=== PATIENT | female | born 1940 | race Caucasian/White ===

== ENCOUNTER 2017-02-06 12:54 | Emergency (ER) | payer OTHER ==
[~2017-02-06 12:54] MED LIST: AMBIEN10 MG PO; B-121000 MCG PO; BIOTIN1 TAB PO; GOOD SENSE ASPI81 M3 PO; MULTI VITAMINS1 TA1 PO; NATURAL IRON65 MG PO; OMEPRAZOLE40 M1 PO; PROVENTIL0.09 MG/A1; SYMBICORT1 AE2 INH; TUDORZA PR400 MCG/A1 IH; VITAMIN D1 TA1 PO
[2017-02-06 16:27] VITALS: BP 151/55
== END 2017-02-06 16:27 | disposition home or self-care (01) ==
LOC: ED 12:54
DX: S61.211A Laceration without foreign body of left index finger without damage to nail, initial encounter (principal); J44.9 Chronic obstructive pulmonary disease, unspecified; Z79.899 Other long term (current) drug therapy; W26.8XXA Contact with other sharp object(s), not elsewhere classified, initial encounter; Y93.89 Activity, other specified; Y99.8 Other external cause status; Y92.89 Other specified places as the place of occurrence of the external cause
CPT/HCPCS: A4570; J2001